=== PATIENT | female | born 1950 | race Caucasian/White ===

== ENCOUNTER 2016-12-08 07:04 | Day surgery (SDC) | payer OTHER ==
[~2016-12-08 07:04] MED LIST: Lactated Ringers 1,000 ML IV SCH
[2016-12-08] MEDS ORDERED: Propofol 200 MG/20 ML SDV ONE ×2 (07:21→09:34)
[2016-12-08] MEDS ORDERED: Midazolam 1 MG/ML 2 ML SDV ONE (07:22)
[2016-12-08] MEDS ORDERED: fentaNYL 100 MCG/2 ML SDV ONE (07:22)
--- NOTE | 2016-12-08 07:32 | PCM.PREANE ---
Preanesthetic Assessment - Anesthesia/Transfusion/Family Hx Anesthesia History: Prior Anesthesia Without Reaction Family History of Anesthesia Reaction: No Transfusion History: No Prior Transfusion(s) Intubation History: Unknown - Review of Systems General: No Symptoms Pulmonary: No Symptoms Cardiovascular: No Symptoms Gastrointestinal: Hematochezia Neurological: No Symptoms Other: Reports: None - Physical Assessment Height: 1.7 m Weight: 76.714 kg ASA Class: 2 Mental Status: Alert & Oriented x3 Airway Class: Mallampati = 2 Dentition: Reports: Bridge (upper front (fixed bridge)) Thyro-Mental Finger Breadths: 3 Mouth Opening Finger Breadths: 3 ROM/Head Extension: Limited/Partial Lungs: Clear to auscultation, Normal respiratory effort Cardiovascular: Regular Rate, Regular Rhythm - Allergies Allergies/Adverse Reactions: Allergies Allergy/AdvReac Type Severity Reaction Status Date / Time No Known Allergies Allergy Verified 12/02/16 14:29 - Blood Blood Available: No - Anesthesia Plan Pre-Op Medication Ordered: None - Acknowledgements Anesthesia Type Planned: MAC Pt an Appropriate Candidate for the Planned Anesthesia: Yes Alternatives and Risks of Anesthesia Discussed w Pt/Guardian: Yes Pt/Guardian Understands and Agrees with Anesthesia Plan: Yes PreAnesthesia Questionnaire HEENT History: Reports: Other (See Below) Other HEENT History: wears glasses, bottom partial Cardiovascular History: Reports: High Cholesterol, Hypertension Respiratory History: Reports: Asthma, Other (See Below) Other Respiratory History: asthma yrs ago Gastrointestinal History: Reports: Colon Polyp, GERD Genitourinary History: Reports: None Musculoskeletal History: Reports: Arthritis Psychiatric History: Reports: Anxiety, Depression Endocrine/Metabolic History: Reports: Osteopenia - Past Surgical History Head Surgeries/Procedures: Reports: None HEENT Surgical History: Reports: Cataract Surgery, Tonsillectomy GI Surgical History: Reports: Colonoscopy Musculoskeletal Surgical History: Reports: Arthroscopic Knee Other Musculoskeletal Surgeries/Procedures:: [place] knee arthroscopy - SUBSTANCE USE Smoking Status *Q: Former Smoker Tobacco Use Within Last Twelve Months: Cigarettes Recreational Drug Use History: No - HOME MEDS Home Medications: Home Meds Calcium Carbonate/Vitamin D3 [Calcium 1,000 + D3 Caplet] 1 tab PO DAILY [History] Celecoxib [CeleBREX] 100 mg PO BID 12/02/16 [History] Cider Vinegar [Apple Cider Vinegar] 300 mg PO DAILY 12/02/16 [History] Cyanocobalamin (Vitamin B-12) [Vitamin B-12] 1,000 mcg PO ASDIRECTED 12/02/16 [ History] Fish Oil/Bradner-3 Fatty Acids [Fish Oil 1,000 MG] 1,000 mg PO DAILY 12/02/16 [ History] Lisinopril 10 mg PO DAILY 12/02/16 [History] Multivitamin [Multivitamins] 1 tab PO DAILY 12/02/16 [History] Omeprazole Magnesium [Prilosec Otc] 20 mg PO DAILY 12/02/16 [History] Vitamin B Complex 1 tab PO DAILY 12/02/16 [History] atorvaSTATin Calcium [Atorvastatin Calcium] 10 mg PO DAILY 12/02/16 [History] buPROPion HCl [Wellbutrin Xl] 150 mg PO BID 12/02/16 [History] - CURRENT (IN HOUSE) MEDS Current Meds: Current Medications Lactated Ringer's (Ringers, Lactated) 1,000 mls @ 125 mls/hr IV ASDIRECTED MELLISSA Discontinued Medications Fentanyl (Sublimaze) Confirm Administered Dose 100 mcg .ROUTE .STK-MED ONE Stop: 12/08/16 07:23 Midazolam HCl (Versed 1 Mg/Ml) Confirm Administered Dose 2 mg .ROUTE .STK-MED ONE Stop: 12/08/16 07:23 Propofol (Diprivan 20 Ml) Confirm Administered Dose 200 mg .ROUTE .STK-MED ONE Stop: 12/08/16 07:22
--- NOTE | 2016-12-08 10:04 | PCM.OPNOTE ---
- General Post-Op/Procedure Note Date of Surgery/Procedure: 12/08/16 Operative Procedure(s): Esophagogastroduodenoscopy with biopsy. (56377). Colonoscopy (42838) Pre Op Diagnosis: Chronic heartburn. Personal history of colon polyps. Post-Op Diagnosis: Mild gastritis with esophagitis. Minimal sigmoid diverticulosis. Anesthesia Technique: MAC (ASA II) Primary Surgeon: Earle Morrow Condition: Good Free Text/Narrative:: Intake & Output 12/07/16 12/08/16 12/08/16 19:59 03:59 11:59 Intake Total 1100 Balance 1100 DICTATION [id number] and [id number]
[2016-12-08] MEDS ORDERED: Lactated Ringers 1,000 ML IV SCH (10:15)
[2016-12-08 10:58] VITALS: BP 112/67
--- NOTE | 2016-12-08 13:22 | OR ---
SURGEON: Earle Morrow M.D. DATE OF PROCEDURE: 12/08/2016 OPERATION PERFORMED: Colonoscopy. ANESTHESIA: MAC. ASA CLASSIFICATION: II. PREOPERATIVE DIAGNOSIS: Personal history of colon polyps. POSTOPERATIVE DIAGNOSIS: Minimal sigmoid diverticulosis. DESCRIPTION OF PROCEDURE: With the patient having completed esophagogastroduodenoscopy with biopsy, she was now positioned in the left lateral decubitus position. The colonoscope was inserted into the rectum and advanced to the cecum without difficulty. The colonoscope was then retroflexed in the cecum to visualize the ascending colon from below. The colonoscope was straightened and slowly withdrawn. The cecum, ascending colon, hepatic flexure, transverse colon, splenic flexure, descending colon, sigmoid colon, and rectum were very well visualized. There were no tumors, polyps, or inflammatory bowel changes. Minimal diverticulosis was noted in the sigmoid colon. Once the colonoscope was withdrawn to the rectum, it was retroflexed to visualize the anal orifice from above. Again, no tumors or polyps were seen and there were no acute hemorrhoidal changes. The colonoscope was then straightened, the rectum aspirated, and the colonoscope removed. The patient tolerated the procedure well and was taken to recovery room in stable condition. HAIDER HONG /[id number]
--- NOTE | 2016-12-08 13:25 | OR ---
SURGEON: Earle Morrow M.D. DATE OF PROCEDURE: 12/08/2016 OPERATION PERFORMED: Esophagogastroduodenoscopy with biopsy. ANESTHESIA: MAC. ASA CLASSIFICATION: II. PREOPERATIVE DIAGNOSIS: Chronic heartburn. POSTOPERATIVE DIAGNOSIS: Mild gastritis and esophagitis. DESCRIPTION OF PROCEDURE: The patient was taken to the endoscopy room and positioned on the endoscopy table in the supine position. Time-out was called for appropriate identification of the patient and procedure. Monitored anesthesia care was provided. The bite-block was placed between the patient's teeth. The gastroscope was inserted into the mouth and advanced without difficulty through the esophagus and stomach into the duodenum, where examination was carried out in a retrograde fashion. The duodenum showed no acute inflammatory changes. The stomach showed a very minimal gastritis. Antral biopsies were obtained. No ulcerations were noted. The gastroscope was then retroflexed to visualize the proximal stomach. No ulcers or tumors were noted along the greater or lesser curvatures and there was no obvious hiatal hernia. The gastroscope was then straightened and slowly withdrawn. The GE junction was well defined and does show some minimal inflammatory changes just proximal to the GE junction. Biopsies of this area were obtained. The esophagus demonstrated good contractility. The vocal cords were briefly visualized as the scope was withdrawn and noted to move symmetrically. The gastroscope was then removed with the patient having tolerated the procedure well. Following colonoscopy, she was taken to recovery room in stable condition. HAIDER HONG /[id number]
== END 2016-12-08 10:40 | disposition home or self-care (01) ==
LOC: MW.SDS 07:04
PROVIDERS: ATTEND Surgery
PROC: 0DB68ZX Excision of Stomach, Via Natural or Artificial Opening Endoscopic, Diagnostic (ICD-10-PCS; principal; 2016-12-08)
PROC: 0DJD8ZZ Inspection of Lower Intestinal Tract, Via Natural or Artificial Opening Endoscopic (ICD-10-PCS; 2016-12-08)
DX: K29.50 Unspecified chronic gastritis without bleeding (principal); K20.9 Esophagitis, unspecified; K57.30 Diverticulosis of large intestine without perforation or abscess without bleeding; M19.90 Unspecified osteoarthritis, unspecified site; J45.909 Unspecified asthma, uncomplicated; I10 Essential (primary) hypertension; E78.00 Pure hypercholesterolemia, unspecified; K21.9 Gastro-esophageal reflux disease without esophagitis; F32.9 Major depressive disorder, single episode, unspecified; F41.9 Anxiety disorder, unspecified; Z87.19 Personal history of other diseases of the digestive system; Z87.891 Personal history of nicotine dependence; Z98.49 Cataract extraction status, unspecified eye; Z90.89 Acquired absence of other organs; Z98.890 Other specified postprocedural states; Z79.899 Other long term (current) drug therapy
CPT/HCPCS: 43239; 45378; J2250; J3010; J7120; 00740; 88305; 88312; J2704